=== PATIENT | female | born 1965 | race African-American/Black ===

== ENCOUNTER 2025-01-14 22:14 | Emergency (ER) | payer OTHER, MEDICAID, SELFPAY ==
[2025-01-14 22:17] VITALS: BP 123/85; PULSE 78; RESP 20; TEMP 36.6; O2SAT 100
--- OUTSIDE RECORDS SUMMARY | 2025-01-14 22:17 | XMS_ITS | Patient Health Record ---
Author Organization Jean Carlos Sims MD [facility] Address [address] [place], [place] [address] Care Team Providers Care Sustain Engineer Name Role Phone LeviBetia Primary Care Provider Reason For Referral No Information Medications Medication SIG (Take, Route, Frequency, Duration) Notes Start Date End Date Status Xanax 1 MG 1 tablet as needed Orally Three times a day Not-Taking Latuda 60 MG 1 tablet with food Orally Once a day Not-Taking CeleXA 20 MG 1 tablet Orally Once a day Not-Taking Flexeril 10 MG 1 tablet as needed orally three times a day Active Vitamin E Active Vitamin B6 Active Citalopram Hydrobromide 20 MG 1 tablet Orally Once a day 07/26/2019 Active Tylenol 325 MG 2 tablets as needed Orally every 4 hrs Active Invega 6 MG 1 tablet in the morn ing Orally Once a day Not-Taking Vitamin B12 Active [place] 3 Active Immunizations Vaccine Route Administration Date Status Comme nts Influenza (split) COMMERCIAL INS IM Intramuscular 07/13/2019 Administered Tdap IM Intramuscular 07/13/2019 Administered Social History Tobacco Use: Social History Observation Description Date Details (start date - stop date) Former Smoker NA - NA Tobacco Use/Smoking Question Answer Notes Are you a former smoker Additional Findings: Tobacco Non-User Ex-light c igarette smoker (1-9/day) Alcohol Screen Question Answer Notes Did you have a drink contain ing alcohol in the past year? Yes How often did you have a dri nk containing alcohol in the past year? Monthly or less (1 point) How many drinks did you have on a typical day when you were drinking in the past year? 1 or 2 drinks (0 point) How often did you have 6 or more drinks on one occasion in the past year? Never (0 point) Points 1 Interpretation Negative Tobacco use other than smoking: Question Answer Notes Are you an other tobacco user? Yes V ape Section Notes: Quit in 2011, smoked for 20 years (1/2 pack or less) - 10 pack year history Quit in 2011, smoked for 20 years (1/2 pack or less) - 10 pack year history Problems Problem Type SNOMED Code ICD Code Onset Dates Problem Status W/U Status Risk Notes Problem Bipolar disorder (94385909) Bipolar disorder, unspecified (F31.9) Active confirmed Problem Pain of right knee region (finding) (924419100064524) Pain in right knee (M25.561) Active confirmed Problem Pure hypercholesterolemia (965714752) Pure hypercholester olemia, unspecified (E78.00) Active confirmed Problem Prediabetes (871712596) Prediabe syed (R73.03) Active confirmed Problem Lumbago (837760935) Lumbago (M54.5) Active confirmed Problem Panic disorder (496607088) Panic disorder [episodic paroxysmal anxiety] (F41.0) Active confirmed Problem Muscle spasm (78489240) Muscle s pasm (M62.838) Active confirmed Problem Anemia (018219963) Anemia, unspecified type (D64.9) Active confirmed Plan Of Treatment Pending Test Test Name Order Date MAMMOGRAM, SCREENING 07/13/2019 EKG 04/18/2019 Physical Therapy 07/13/2019 Insurance Providers Payer Name Payer Address Payer Phone Subscriber Number Group Number Insured Name Patient Relationship to Insured Coverage Start Date Coverage End Date [facility] [address] [address] [place] [address] [id number] Marlene Alexandra Self - patient is the insured Medical (General) History Medical History History ICD Code Bipolar disorder Osteoarthritis of the knees Depression Right breast capsular contraction Neuropathy, right arm Right torn meniscus Anemia Prediabetes Hypercholesterolemia Surgical History Surgery Date(Month/Year) Traumatized cervix 1987 Breast Augmentation 12/1992 Right knee torn mesiscus 2008 Breast Augmentation 05/2018 Hospitalization History Reason Date(Month/Year) See surgical history DNC, miscarriage 08/1996 Pneumonia 06/2001
--- OUTSIDE RECORDS SUMMARY | 2025-01-14 22:17 | XMS_ITS | Clinical Summary ---
Author Organization [email or web address] Address [address] [place] [address] Care Team Providers Care Non Destructive Evaluation Manager Name Role Phone Kendall Pretty MD Primary Care Provide r Source Comments [facility],non-owned Affiliates and Associated Physician Practices is amultiple site organization consisting of ambulatory clinics and hospital sitesin [place], [place], [place] and [place]. This disclosure is being madepursuant to the Care Everywhere program and may not contain all information available regarding this patient. Last updated 18.[email or web address] Allergies No known active allergies Medications * Be aware that medications may not be up to date on this document. Alwaysverify current medications with the patient. Medication Sig Dispensed Refills Start Date End Date Status ALPRAZolam (XANAX) 0.5 MG tablet TK 1 T PO BID PRN 08/21/2020 Active citalopram (CELEXA) 20 MG tablet TK 1 T PO D 08/21/2020 Active paliperidone CR 24hr (INVEGA) 6 MG tablet 08/22/2020 Acti ve Probiotic Product (PROBIOTIC ADVANCED PO) A ctive Family History Medical History Relation Name Comments Cancer - Colon Neg Hx Colon polyps Neg Hx Social History Tobacco Use Types Packs/Day Years Used Date Smoking Tobacco: Never Assessed Sex and Gender Information Value Date Recorded Sex Assigned at Not on file Gender Identity Not on file Sexual Orientation Not on file Last Filed Vital Signs Vital Sign Reading Time Taken Comments Blood Pressure - - Pulse - - Temperature - - Respiratory Rate - - Oxygen Saturation - - Inhaled Oxygen Concentration - - Weight 61.2 kg (135 lb) 08/30/2020 2:22 PM COMMUNICATIONS AND SIGNALS SUPERVISOR Height 171.5 cm (5' 7.5 ) 08/30/2020 2:22 PM COMMUNICATIONS AND SIGNALS SUPERVISOR Body Mass Index 20.83 08/30/2020 2:22 PM COMMUNICATIONS AND SIGNALS SUPERVISOR Plan of Treatment Health Maintenance Due Date Last Done Comments COLOGUARD (AGES 45-75) - COL ON CA SCREENING 1965 COLON MONITORING 1965 COLONOSCOPY - COLON CA SCREENING 1965 CT COLONOGRAPHY - COLON CA SCREENING 1965 Colorectal Cancer Screening 1965 FIT - COLON CA SCREENING 1965 FLEX SIG - COLON CA SCREENING 1965 LIPID TESTING 1965 MAMMOGRAM 1965 PAP SMEAR 1965 HIV SCREENING 1980 HEPATITIS C SCREENING 08/06/1983 DTAP/TDAP/TD VACCINES (1 - Tdap) 1984 HEPATITIS B VACCINE (1 of 3 - 19+ 3-dose series) 1984 PNEUMOCOCCAL VACCINE 50+ (1 of 1 - PCV) 2015 ZOSTER VACCINE (1 of 2) 2015 COVID-19 VACCINE ( - 2023-2 5 season) 2024 INFLUENZA VACCINE (#1) 2024 DEPRESSION SCREENING 10/18/2024 HIB VACCINE Aged Out No longer eligi ble based on patient's age to complete this topic HPV VACCINE Aged Out No longer eligi ble based on patient's age to complete this topic MENINGOCOCCAL (Group B) VACC INE SHARED DECISION-MAKING Aged Out No longer eligibl e based on patient's age to complete this topic MENINGOCOCCAL GROUPS A/C/Y/W VACCINE Aged Out No longer eligible b ased on patient's age to complete this topic PNEUMOCOCCAL VACCINE Aged Out No long er eligible based on patient's age to complete this topic Care Teams Non Destructive Evaluation Manager Relationship Specialty Start Date End Date Kendall Pretty MD PCP - General Family Medicine 08/30/20
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
--- NOTE | 2025-01-15 01:13 | PC.NURSE ---
pt continually leaving room and walking around er dept. Security spoke with pt who verbalized I don't want to stay here, im gonna call my daughter and leave. Security informed pt that if she does not stay in the room they would remove her from the list to be seen and pt verbalized to security take me off the list, i don't want to be seen.
--- NOTE | 2025-01-15 01:25 | PC.NURSE ---
pt observed ambulatory to exit and getting into uber car. NAD noted.
--- OUTSIDE RECORDS SUMMARY | 2025-01-15 01:40 | XMS_ITS | Clinical Summary ---
Author Organization [facility] Address [address] [place] [address] Care Team Providers Care General Purchasing Agent Name Role Phone Unavailable Primary Care Provider [...] on file Legal Sex Female 5:41 AM SECURITY INTELLIGENCE ANALYST Gender Identity Not on file Sexual Orientation Not on file Occupation Industry Job Start Date Job End Date Not on file Not on file Not on file Not on file Not on file Not on file Not on file Not on file Last Filed Vital Signs Vital Sign Reading Time Taken Comments Blood Pressure 124/72 12/15/2018 11:25 AM SECURITY INTELLIGENCE ANALYST Pulse 85 09/24/2012 12:00 AM SECURITY INTELLIGENCE ANALYST Temperature 36.6 C (97.9 F) 11/18/2018 12:46 AM SECURITY INTELLIGENCE ANALYST Respiratory Rate 16 11/18/2018 2:00 AM SECURITY INTELLIGENCE ANALYST Oxygen Saturation 99% 11/18/2018 2:00 AM SECURITY INTELLIGENCE ANALYST Inhaled Oxygen Concentration - - Weight 63.5 kg (140 lb) 12/15/2018 11:25 AM SECURITY INTELLIGENCE ANALYST Height 172.7 cm (5' 8 ) 12/15/2018 11:25 AM SECURITY INTELLIGENCE ANALYST Body Mass Index 21.29 12/15/2018 11:25 AM SECURITY INTELLIGENCE ANALYST Plan of Treatment Health Maintenance Due Date [...] 7:47 PM CDT) LAST MENSTRUAL PERIOD 04/05/11 [facility] PAP INTERP Unable to provide interpretation due to unsatisfactory specimen adequacy. [facility] Dining Room Attendant Pap Comment This case could not be evaluated with computer assisted technology. The slide was manually screened according to routine procedures. Consider repeat ore tester cytology in 4-6 months, as clinically indicated. [facility] ADEQUACY: Specimen processed and examined, but unsatisfactory for evaluation due to an insufficient number of squamous cells. [facility] CLINICAL INFORMATION Information not provided [facility] SOURCE [employer] [facility] PREV PAP: INFORMATION NOT PROVIDED [facility] CYTOTECHNOLOGI [place]: [place](ASCP) [facility] REVIEW CYTOTECHNOLOGI [place]: [place], [place](ASCP) [facility] Comment: Lab test performed by: [employer] [address] [address] STARLA SÁNCHEZ DO PREV BX: INFORMATION NOT PROVIDED [facility] REPORT STATUS FINAL [facility] Endocervical 04/06/2011 7:47 PM CDT 04/06/2011 8:15 PM CDT Comment:ENDOCERVICAL us Tay Méndez MD PATHOLOGY/CYTOLOGY ORDERABLE S Final Result [facility] CLIA# [id number] [address] [facility] [place] [address] from Last 3 Months or Most Recently Relevant to Health Maintenance Insurance [facility] [id number] Advance Directives For more information, please contact: [phone] * Full Code (Latest Code Status on File) Date Activated Date Inactivated Comments 09/23/2012 9:35 PM 09/24/2012 10:38 AM
--- OUTSIDE RECORDS SUMMARY | 2025-01-15 01:40 | XMS_ITS | Continuity of Care Document ---
Author Organization [facility] Address [address] [place] [address] [address] [place] [address] Phone Care Team Providers Care Developmental Education Instructor Name Role Phone Krish OD, Rocio Unavailable Unavailable Procedures Procedure Date EYE EXAM, NEW PATIENT REFRACTION Advance Directives Directive Yes / No Effective Date File Name No Information Encounters Encounter Description Practice Location Reason(s) For Visit Diagnoses Date Provider Providers Copied on Encounter [facility], [address], [place], [place], [address], tel:[phone] [facility] No Information [address] [facility] [address] , [address], [place], [address], [place]. tel:[phone] Family History Family Member Type Diagnosis Age At Onset No Information Payers Payer name Insurance type Covered constitution party ID Authoriza tion(s) [facility] CI [id number] Social History Type Description Quantity Date Captured Comments Sex Female Smoking Status No Information Chief Complaint And Reason For Visit No Information Reason For Referral Reason For Referral No Information History Of Present Illness Encounter Date Complaint History Of Prese nt Illness No Information Functional Status Date Functional Assessmen t No Information Instructions Date Instruction Additional Infor mation No Information Assessments Type Assessment Date No Information Patient Care Teams Name Effective Dates (start - stop) Status Members No Information
--- OUTSIDE RECORDS SUMMARY | 2025-01-15 01:40 | XMS_ITS | Clinical Summary ---
Author Organization [facility] Address [address] [place] [address] Care Team Providers Care Radial Drill Press Set Up Operator Name Role Phone Kendall Pretty MD Primary Care Provide r Source Comments [facility], formerly [facility],non-owned Affiliates and Associated Physician Practices is amultiple site organization consisting of ambulatory clinics and hospital sitesin [place], [place], [place] and [place]. This disclosure is being madepursuant to the Care Everywhere program and may not contain all information available regarding this patient. Last updated 18.[facility] Allergies No known active allergies Medications * [...] 61.2 kg (135 lb) 08/30/2020 2:22 PM TANK HOUSE OPERATOR Height 171.5 cm (5' 7.5 ) 08/30/2020 2:22 PM TANK HOUSE OPERATOR Body Mass Index 20.83 08/30/2020 2:22 PM TANK HOUSE OPERATOR Plan of Treatment Health Maintenance Due Date [...] age to complete this topic Care Teams Radial Drill Press Set Up Operator Relationship Specialty Start Date End Date Kendall Pretty MD PCP - General Family Medicine 08/30/20
--- OUTSIDE RECORDS SUMMARY | 2025-01-15 01:40 | XMS_ITS | Clinical Summary ---
Author Organization [facility] Address [address] [place] [address] Care Team Providers Care Nuclear Fuel Processing Technician Name Role Phone None, Provider MD Primary [...] Popliteal synovial cyst 05/19/2010 Bipolar affective disorder ([facility]) 10/2009 Tobacco abuse 09/04/2009 Family History Medical History Relation Comments Hypertension Father Hypertension Mother Relation Status Comments Father Mother Social History Tobacco Use Types Packs/Day Years Used Date Smoking Tobacco: Every Day Cigarettes Smokeless Tobacco: Never Tobacco Cessation:Ready to Q uit: Not Asked Alcohol Use Standard Drinks/Week Comments Yes 0 (1 standard drink = 0.6 oz pur e alcohol) socially [facility] Utilities Answer Date Recorded In the past 12 months has th e [employer], gas, oil, or water [employer] threatened to shut off services in your [...] place to sleep or slept in a long term (including now)? Patient declined 11/09/2023 Comments No Sex and Gender Information Value Date Recorded Sex Assigned at Not on file Legal Sex Female 8:01 PM CDT Gender Identity Not on file Sexual Orientation Not on file Last Filed Vital Signs Vital Sign Reading Time Taken Comments Blood Pressure 161/82 11/10/2023 8:11 AM PROFESSIONAL SHOPPER Pulse 70 11/10/2023 8:11 AM PROFESSIONAL SHOPPER Temperature 37 C (98.6 F) 11/10/2023 8:11 AM PROFESSIONAL SHOPPER Respiratory Rate 16 11/10/2023 8:11 AM PROFESSIONAL SHOPPER Oxygen Saturation 98% 11/10/2023 8:11 AM PROFESSIONAL SHOPPER Inhaled Oxygen Concentration - - Weight 65.1 kg (143 lb 8.3 oz) 11/08/2023 10:31 PM PROFESSIONAL SHOPPER Height 170.2 cm (5' 7 ) 11/08/2023 3:24 PM PROFESSIONAL SHOPPER Body Mass Index 22.48 11/08/2023 3:24 PM PROFESSIONAL SHOPPER Plan of Treatment Health Maintenance Due Date [...] complete this topic Insurance MEDICAID DEPT OF [address] Advance Directives * Full Code (Latest Code Status on File) Date Activated Date Inactivated Comments 11/08/2023 5:42 PM 11/10/2023 12:41 PM * Full Code Date Activated Date Inactivated Comments 02/27/2023 6:12 PM 02/28/2023 2:54 PM Care Teams Nuclear Fuel Processing Technician Relationship Specialty Start Date End Date None, Provider, MD PCP - General UNKNOWN PHYSICIAN SPECIALTY 02/27/23
--- OUTSIDE RECORDS SUMMARY | 2025-01-15 01:40 | XMS_ITS | Patient Health Record ---
Author Organization Jean Carlos Sims MD [facility] Address [address] [place], [place] [id number] Care Team Providers Care Field Service Specialist Name Role Phone LeviBetia Primary Care Provider [...] Once a day Not-Taking Vitamin B12 Active [place] 3 Active Immunizations Vaccine Route Administration Date [...] W/U Status Risk Notes Problem Bipolar disorder (54184579) Bipolar disorder, unspecified (F31.9) Active confirmed Problem Pain of right knee region (finding) (798560690937866) Pain in right knee (M25.561) Active confirmed Problem Pure hypercholesterolemia (613096606) Pure hypercholester olemia, unspecified (E78.00) Active confirmed Problem Prediabetes (698508272) Prediabe syed (R73.03) Active confirmed Problem Lumbago (163503690) Lumbago (M54.5) Active confirmed Problem Panic disorder (093444118) Panic disorder [episodic paroxysmal anxiety] (F41.0) Active confirmed Problem Muscle spasm (20607041) Muscle s pasm (M62.838) Active confirmed Problem Anemia (175990406) Anemia, unspecified type (D64.9) Active confirmed Plan Of Treatment Pending Test Test Name Order Date MAMMOGRAM, SCREENING 07/13/2019 EKG 04/18/2019 Physical Therapy 07/13/2019 Insurance Providers Payer Name Payer Address Payer Phone Subscriber Number Group Number Insured Name Patient Relationship to Insured Coverage Start Date Coverage End Date [facility] [address] [address] [place] [address] [id number] Marlene Alexandra Self - patient is the [...]
== END 2025-01-15 02:30 | disposition left against medical advice (07) ==
DX: R10.9 Unspecified abdominal pain (principal)
CPT/HCPCS: 99199

== ENCOUNTER 2025-05-03 19:07 | Emergency (ER) | payer OTHER, MEDICAID, SELFPAY ==
--- NOTE | ~2025-05-03 | XR_ITS ---
EXAMINATION: XR chest 1V portable Exam Date/Time: 05/03/2025 19:40 CDT HISTORY: AMS Comparison: None. RESULT: Lines, tubes, and devices: Bilateral breast implants. Lungs and pleura: Exam limited by leftward rotation. Cardiomediastinal silhouette: Unremarkable. Other: No acute osseous or upper abdominal finding. IMPRESSION: No acute cardiopulmonary process. Reviewed, dictated and finalized at location K.
--- NOTE | ~2025-05-03 | CT_ITS ---
EXAMINATION: CT brain wo con DATE: 05/03/2025 20:53 INDICATION: AMS, drug OD . TECHNIQUE: Computed tomography (CT) of the head was performed without intravenous contrast. The mA wa s adjusted according to patient size. Iterative reconstruction technique was employed. The dose-lengt h product was 681.00 mGy-cm. COMPARISON: None. FINDINGS: No acute intracranial hemorrhage or extra-axial fluid collection. No hydrocephalus, mass, or herniation. No acute ischemic infarct. Unremarkable dural venous sinus attenuation. No acute osseous abnormality. Retention cysts/polyps in the left maxillary sinus, ethmoid and maxillary mucosal thickening, the rem aining aerated spaces are clear. IMPRESSION: No acute intracranial process. Reviewed, dictated and finalized at location K.
[2025-05-03 19:10] VITALS: BP 144/123; PULSE 81; RESP 16; TEMP 36.4; O2SAT 100
--- NOTE | 2025-05-03 19:11 | ECG_ITS ---
Test Date: 2025-05-03 19:43:25 Measurements Intervals [place] Rate: 74 P: 58 CA: 141 QRS: 60 QRSD: 87 T: 83 QT: 362 QTc: 404 Interpretive Statements SINUS RHYTHM POSSIBLE LEFT ATRIAL ENLARGEMENT [-0.1mV P-WAVE IN V1/V2] LEFT VENTRICULAR HYPERTROPHY WITH SECONDARY REPOLARIZATION ABNORMALITIES ABNORMAL ECG No previous ECG available for comparison Electronically Signed On 05-04-2025 07:41:15 CDT by Juan Baugh M.D.
--- NOTE | 2025-05-03 19:25 | ED_ITS ---
HPI - General Adult General Chief complaint: Overdose Stated complaint: PANIC ATTACK, AMS, REC'D NARCAN Time Seen by Provider: 05/03/25 19:10 History of Present Illness HPI narrative: 59-year-old female with history of polysubstance abuse presenting to the emergency department with mental status changes. She was found unresponsive by EMS and provided Narcan feel that any response. She has occasional tremulousness and a low GCS. No signs of visible trauma. Patient is withdrawing to pain, not opening eyes or verbalizing, GCS 7. Patient has a known history to EMS and police with multiple transport other hospitals for drug and substance related abuse. Patient has not been to this facility previously. She was brought back to room 8 for resuscitation. Reportedly earlier this morning around 8:00 a.m. patient went to another hospital for suspected chest pain and possibly discharge home as she was found near her household earlier this afternoon prior to transport to our facility. Unclear events at outside facility and we do not have records. Related Data Allergies Allergy/AdvReac Type Severity Reaction Status Date / Time No Known Allergies Allergy Unverified 01/14/25 22:15 Review of Systems 2 Review of Systems: Unable to obtain secondary to mental status ROS unobtainable: Yes unobtainable due to mental status Exam 2 Narrative: GENERAL: GCS 7, withdrawing to pain, not opening eyes, not verbalizing to pain HEAD: Normocephalic, atraumatic without any external evidence of trauma EYES: Pupils are 2 mm and reactive bilaterally ENT: Addition poor dentition, mucous membranes are moist NECK: Supple. CHEST: Mildly coarse bibasilar breath sounds but upper airways appear clear to auscultation without any wheezing, tachypnea is noted HEART: [Regular rate and rhythm]. No murmur heard. [Normal peripheral pulses.] ABDOMEN: Soft and nondistended, localizes to palpation of the abdomen, no rigidity EXTREMITIES: No external signs of trauma, no edema in the extremities SKIN: Warm, dry, no rash. NEURO: Withdrawals to pain in all extremities, not verbalizing to pain or opening eyes to pain, GCS 7 PSYCH: Unable to assess Course Vital Signs Vital signs: Vital Signs Temperature 36.4 C 05/03/25 19:10 Pulse Rate 81 05/03/25 19:10 Respiratory Rate 16 05/03/25 19:10 Blood Pressure 144/123 H 05/03/25 19:10 Pulse Oximetry 100 05/03/25 19:10 Oxygen Delivery Room Air 05/03/25 19:10 Temperature 36.4 C 05/03/25 19:10 Pulse Rate 91 05/04/25 04:15 Respiratory Rate 16 05/04/25 04:15 Blood Pressure 143/93 H 05/04/25 04:15 Pulse Oximetry 97 05/04/25 04:15 Oxygen Delivery Room Air 05/03/25 21:16 Medical Decision Making MDM Narrative Medical decision making narrative: 59-year-old female with history of polysubstance abuse presenting to the emergency department with mental status changes. She was found unresponsive by EMS and provided Narcan feel that any response. She has occasional tremulousness and a low GCS. No signs of visible trauma. Patient is withdrawing to pain, not opening eyes or verbalizing, GCS 7. Patient has a known history to EMS and police with multiple transport other hospitals for drug and substance related abuse. Patient has not been to this facility previously. She was brought back to room 8 for resuscitation. Reportedly earlier this morning around 8:00 a.m. patient went to another hospital for suspected chest pain and possibly discharge home as she was found near her household earlier this afternoon prior to transport to our facility. Unclear events at outside facility and we do not have records. Patient was placed on nuclear monitoring technician and pulse oximetry, IV was attempted multiple times and she was given additional Narcan IV for suspected drug overdose although given her level of obtundation as well as EMS report of lots of coughing with white material raising suspicion for aspiration. May require prompt intubation which we are preparing for but several moments after receiving Narcan patient woke up, mentating appropriately, GCS 15 and spitting up. She admitted to snorting lines of fentanyl earlier this evening which corroborates her presentation. She was given 8 mg of Zofran and will be observed. Laboratory studies were ordered as well as a chest x-ray and EKG. Patient was observed for numerous hours here in the emergency department with clinical improvement and sobriety upon reassessments. She is ambulatory without any ataxic or antalgic gait. Doing well, remaining hemodynamically stable without any hypoxia fever. Her laboratory studies show slight leukocytosis of 13.6 likely reactive, normal hemoglobin and normal platelets. Coagulation panel is normal, electrolytes are unremarkable, normal creatinine, unremarkable glucose. Negative troponin. Urinalysis without any infection, UDS is pending. CT of the head negative for any acute intracranial process. Chest x-ray without any acute findings. EKG has a poor baseline waveform making interpretation difficult, no ST segment elevations or ectopy. Patient re-evaluated multiple times and doing well without any complaints. She is now sober at this time and can be safely discharged with return precaution and substance abuse resources and a prescription for naloxone. Medical Records Medical records reviewed: Yes I reviewed the external patient's medical records. Vital Signs Vital Signs: Vital Signs Temperature 36.4 C 05/03/25 19:10 Pulse Rate 81 05/03/25 19:10 Respiratory Rate 16 05/03/25 19:10 Blood Pressure 144/123 H 05/03/25 19:10 Pulse Oximetry 100 05/03/25 19:10 Oxygen Delivery Room Air 05/03/25 19:10 Temperature 36.4 C 05/03/25 19:10 Pulse Rate 91 05/04/25 04:15 Respiratory Rate 16 05/04/25 04:15 Blood Pressure 143/93 H 05/04/25 04:15 Pulse Oximetry 97 05/04/25 04:15 Oxygen Delivery Room Air 05/03/25 21:16 Lab Data Lab results reviewed: Yes I reviewed the patient's lab results. 05/03/25 20:25 05/03/25 20:25 Labs: Lab Results 05/03/25 05/03/25 Range/Units 19:47 20:25 WBC 13.6 H (4.5-10.0) K/mm3 RBC 5.46 H (4.2-5.4) M/mm3 Hgb 14.5 (12.0-15.0) g/dL Hct 46.2 (37.0-47.0) % MCV 84.6 (80-100) fl MCH 26.6 (26-34) pg MCHC 31.4 L (32-36) g/dl RDW 14.6 H (11.5-14.5) % Plt Count 284 (150-375) k/mm3 MPV 10.4 (7.4-10.4) fl Immature Gran % (Auto) 0.4 (0-0.5) % Neut % (Auto) 72.8 (45.5-73.1) % Lymph % (Auto) 20.2 (18.3-44.2) % Howell % (Auto) 5.8 (2.6-8.5) % Eos % (Auto) 0.3 (0-4.4) % Baso % (Auto) 0.5 (0.2-1.2) % Lymph # (Auto) 2.74 (0.9-3.2) K/mm3 Howell # (Auto) 0.8 H (0.1-0.6) K/mm3 Eos # (Auto) 0.0 (0-0.3) K/mm3 Baso # (Auto) 0.1 (0.0-0.1) K/mm3 Abs Immat Gran (auto) 0.06 H (0.00-0.031) K/mm3 Absolute Neuts (auto) 9.9 H (1.3-6.7) K/mm3 Absolute Nucleated RBC 0.000 (0.0-0.012) K/mm3 Nucleated RBC % 0.0 (0.0-0.2) % PT 13.9 (11.1-14.7) Seconds INR 1.1 APTT 22.4 (22.3-36.8) Seconds Sodium 142 (137-145) mmol/L Potassium 3.8 (3.4-5.0) mmol/L Chloride 101 (98-107) mmol/L Carbon Dioxide 26 (22-30) mmol/L Anion Gap 15 H (4-12) mmol/L BUN 7 (7-17) mg/dL Creatinine 0.86 (0.7-1.0) mg/dL Estim Creat Clear Calc Not Reportable Estimated GFR > 60 (59 - ) Glucose 163 H (65-110) mg/dL POC Capillary Glucose 147 H (65-105) mg/dl Calcium 11.2 H (8.4-10.2) mg/dL Total Bilirubin 0.6 (0.2-1.3) mg/dL AST 43 H (14-36) U/L ALT 29 (6-35) U/L Alkaline Phosphatase 96 (38-126) U/L Troponin I < 0.012 (0.000-0.034) ng/mL Total Protein 9.2 H (6.3-8.2) g/dL Albumin 4.9 (3.5-5.1) g/dL Urine Color Yellow (Yellow) Urine Appearance Clear (Clear) Urine pH 7.5 (5.0-9.0) Ur Specific [place] 1.024 (1.001-1.035) Urine Protein 1+ H (Negative) mg/dL Urine Glucose (UA) Negative (Negative) mg/dL Urine Ketones Trace H (Negative) mg/dL Ur Blood (Man) Negative (Negative) Urine Nitrate Negative (Negative) Urine Bilirubin Negative (Negative) Urine Urobilinogen 1.0 (<2.0) mg/dL Add Ur Microanalysis Reviewed Leukocyte Esterase Rfl Negative (Negative) ONEAL/UL Urine RBC 0-2 (0-2) /hpf Urine WBC 0-5 (0-3) /hpf Ur Squamous Epith Cells None seen (Few) /hpf Urine Bacteria None seen /hpf Urine Casts 0-2 Urine Opiates Screen Pending Urine Methadone Screen Pending Ur Barbiturates Screen Pending Ur Phencyclidine Scrn Pending Ur Amphetamine Screen Pending U Benzodiazepines Scrn Pending Urine Cocaine Screen Pending U Cannabinoids Screen Pending Imaging Data Attestation: I personally reviewed and interpreted this imaging study as follows: My impression: Impressions Chest X-Ray 05/03/25 20:03 IMPRESSION: No acute cardiopulmonary process. Head CT 05/03/25 20:56 IMPRESSION: No acute intracranial process. Critical Care Time Critical Care Time Critical Care Time: Yes Total Critical Care Time: 35 Discharge Plan Discharge Clinical Impression: Opiate overdose, Encephalopathy, Mental status change resolved, Drug abuse Patient Disposition: Home Condition: Stable Instructions: Antibiotic Form, Narcotic Safety (ED), Narcotic Use Disorder (ED) Additional Instructions: You were seen in the emergency department today for a suspected opiate overdose. Your symptoms improved with naloxone and we observed you for numerous hours for sobriety. Your laboratory studies are all reassuring without any acute concerning findings on your workup or imaging studies. We have prescribed you naloxone to take at home if you experience any other overdose or overdose type symptoms. Refrain from fentanyl or other substance use. Return with any emergent concerns. Patient Language: Polish Prescriptions: New naloxone [Narcan] 4 mg/actuation spray,non-aerosol 4 mg intranasal Q3M PRN (Reason: opioid overdose) Qty: 2 0RF Rx Instructions: spray 1 dose into ONE nostril; alternate nostrils w each dose until help arrives Follow-up/Referrals: PHYSICIAN,BIG DATA ANALYTICS LEAD [Primary Care Provider] - Time of Disposition: 03:01
--- OUTSIDE RECORDS SUMMARY | 2025-05-03 19:25 | XMS_ITS | Patient Health Record ---
Author Organization Jean Carlos Sims MD [facility] Address [address] [place], [place] [id number] Care Team Providers Care Appliance Repair Technician Name Role Phone LeviBetia Primary Care Provider [...] Once a day Not-Taking Vitamin B12 Active Alpha 3 Active Immunizations Vaccine Route Administration Date [...] W/U Status Risk Notes Problem Bipolar disorder (02680291) Bipolar disorder, unspecified (F31.9) Active confirmed Problem Pain of right knee region (finding) (253779618252495) Pain in right knee (M25.561) Active confirmed Problem Pure hypercholesterolemia (343090725) Pure hypercholester olemia, unspecified (E78.00) Active confirmed Problem Prediabetes (739902354) Prediabe syed (R73.03) Active confirmed Problem Lumbago (915034883) Lumbago (M54.5) Active confirmed Problem Panic disorder (865257689) Panic disorder [episodic paroxysmal anxiety] (F41.0) Active confirmed Problem Muscle spasm (93902346) Muscle s pasm (M62.838) Active confirmed Problem Anemia (363348242) Anemia, unspecified type (D64.9) Active confirmed Plan Of Treatment Pending Test Test Name Order Date MAMMOGRAM, SCREENING 07/13/2019 EKG 04/18/2019 Physical Therapy 07/13/2019 Insurance Providers Payer Name Payer Address Payer Phone Subscriber Number Group Number Insured Name Patient Relationship to Insured Coverage Start Date Coverage End Date [facility] [address] [address] [place] [address] [phone] [id number] Marlene Alexandra Self - patient is the [...]
--- OUTSIDE RECORDS SUMMARY | 2025-05-03 19:26 | XMS_ITS | Clinical Summary ---
Author Organization [facility] Address [address] [place] [address] Care Team Providers Care Extractor Operator Solvent Process Name Role Phone Unavailable Primary Care Provider [...] on file Legal Sex Female 5:41 AM MATERIALS INTERN Gender Identity Not on file Sexual Orientation Not on file Occupation Industry Job Start Date Job End Date Not on file Not on file Not on file Not on file Not on file Not on file Not on file Not on file Last Filed Vital Signs Vital Sign Reading Time Taken Comments Blood Pressure 124/72 12/15/2018 11:25 AM MATERIALS INTERN Pulse 85 09/24/2012 12:00 AM MATERIALS INTERN Temperature 36.6 C (97.9 F) 11/18/2018 12:46 AM MATERIALS INTERN Respiratory Rate 16 11/18/2018 2:00 AM MATERIALS INTERN Oxygen Saturation 99% 11/18/2018 2:00 AM MATERIALS INTERN Inhaled Oxygen Concentration - - Weight 63.5 kg (140 lb) 12/15/2018 11:25 AM MATERIALS INTERN Height 172.7 cm (5' 8) 12/15/2018 11:25 AM MATERIALS INTERN Body Mass Index 21.29 12/15/2018 11:25 AM MATERIALS INTERN Plan of Treatment Health Maintenance Due Date Last Done Comments HEPATITIS B VACCINES (1 of 3 - 19+ 3-dose series) 07/19 BREAST CANCER SCREENING 2005 COLORECTAL SCREENING 2010 Colorectal Cancer Screening 2010 FIT-DNA Q 3 years 2010 FIT/FOBT Q 1 year 2010 Flex Sig/CT Colonography Q 5 years 2010 PAP SMEAR 04/06/2014 04/06/2011 ZOSTER VACCINE (1 of 2) 2015 CERVICAL CANCER SCREENING 04/06/2016 HPV/Cotest (21-29) 04/06/2016 04/06/2011 HPV/Cotest (30-65) 04/06/2016 04/06/2011 DTAP/TDAP/TD VACCINES (2 - Td or Tdap) 04/06/2021 INFLUENZA VACCINE (#1) 2025 Procedures Procedure Name Priority Date/Time Associated Diagnosis Comments CERV/VAG CYTOPATH, THIN PREP IMAGR RFLX HPV Routine 04/06/2011 7:47 PM CDT Screening for cervical cancer from Last 3 Months or Most Recently Relevant to Health Maintenance Results * CERV/VAG CYTOPATH, THIN PREP IMAGR RFLX HPV (04/06/2011 7:47 PM CDT) LAST MENSTRUAL PERIOD 04/05/11 [facility] PAP INTERP Unable to provide interpretation due to unsatisfactory specimen adequacy. [facility] Tractor Sweeper Operator Pap Comment This case could not be evaluated with computer assisted technology. The slide was manually screened according to routine procedures. Consider repeat boring machine set up operator jig cytology in 4-6 months, as clinically indicated. [facility] ADEQUACY: Specimen processed and examined, but unsatisfactory for evaluation due to an insufficient number of squamous cells. [facility] CLINICAL INFORMATION Information not provided [facility] SOURCE [employer] [facility] PREV PAP: INFORMATION NOT PROVIDED [facility] CYTOTECHNOLOGI ST: [place], [place](ASCP) [facility] REVIEW CYTOTECHNOLOGI ST: [place], CT(ASCP) [facility] Comment: Lab test performed by: [facility] [address] [place] [address] STARLA SÁNCHEZ DO PREV BX: INFORMATION NOT PROVIDED [facility] REPORT STATUS FINAL [facility] Endocervical 04/06/2011 7:47 PM CDT 04/06/2011 8:15 PM CDT Comment:ENDOCERVICAL us Tay Méndez MD PATHOLOGY/CYTOLOGY ORDERABLE S Final Result [facility] CLIA# [id number] [address] [place] [address] from Last 3 Months or Most Recently Relevant to Health Maintenance Insurance [facility] [id number] Advance Directives For more information, please contact: [phone] * Full Code (Latest Code Status on File) Date Activated Date Inactivated Comments 09/23/2012 9:35 PM 09/24/2012 10:38 AM
--- OUTSIDE RECORDS SUMMARY | 2025-05-03 19:26 | XMS_ITS | Encounter Summary ---
Author Organization [facility] Address [facility] [place] [address] Care Team Providers Care Marketing And Communications Officer Name Role Phone None, Provider Primary Care Provider Unavaila ble Reason for Referral * Imaging (Emergency) - New Request Specialty Diagnoses / Procedures Referred By Contac t Referred To Contact RADIOLOGY Procedures CTA CHEST PE PROTOCOL Preston Dickson MD [address] [address] Phone: tel: fax: Referral ID Status Reason Start Date Expiration Date V isits Requested Visits Authorized [id number] New Request 05/03/2025 05/03/2026 1 1 Reason for Visit * Reason Comments Chest Pain Encounter Details Date Type Department Care Team (Late st Contact Info) Description 05/03/2025 10:34 AM CDT - 05/03/2025 2:57 PM CDT Emergency [facility] [place] [address] Preston Dickson MD [address] [address] Chest Pain Discharge Disposition: Home or Self Care (Routine Discharge) Social History Tobacco Use Types Packs/Day Years Used Date Smoking Tobacco: Every Day Cigarettes Smokeless Tobacco: Never Alcohol Use Standard Drinks/Week Comments Yes 0 (1 standard drink = 0.6 oz pur e alcohol) socially [facility] Utilities Answer Date Recorded In the past 12 months has e electric, gas, oil, or water company threatened to shut off services in your [...] place to sleep or slept in a alf (including now)? Patient declined 11/09/2023 Comments No Sex and Gender Information Value Date Recorded Sex Assigned at Female 05/03/2025 10:53 AM CDT Legal Sex Female 8:01 PM CDT Gender Identity Not on file Sexual Orientation Not on file documented as of this encounter Last Filed Vital Signs Vital Sign Reading Time Taken Comments Blood Pressure 148/82 05/03/2025 2:00 PM CDT Pulse 115 05/03/2025 2:00 PM CDT Temperature 36.9 C (98.5 F) 05/03/2025 10:39 AM CDT Respiratory Rate 13 05/03/2025 11:30 AM CDT Oxygen Saturation 100% 05/03/2025 2:00 PM CDT Inhaled Oxygen Concentration - - Weight 71.4 kg (157 lb 6.5 oz) 05/03/2025 10:39 AM CDT Height 170.2 cm (5' 7) 05/03/2025 10:39 AM CDT Body Mass Index 24.65 05/03/2025 10:39 AM CDT documented in this encounter Functional Status * Are you deaf or do you have serious difficulty hearing Answer Date of Assessment Author Status No 11/09/2023 12:07 AM Anaid Urbina RN Active * Are you blind or do you have serious difficulty seeing, even when wearing glasses? Answer Date of Assessment Author Status No 11/09/2023 12:07 AM Anaid Urbina RN Active * Do you have serious difficulty walking or climbing stairs? Answer Date of Assessment Author Status No 11/09/2023 12:07 AM Anaid Urbina RN Active * Do you have difficulty dressing or bathing? Answer Date of Assessment Author Status No 11/09/2023 12:07 AM Anaid Urbina RN Active * Because of a physical, mental, or emotional condition, do you have difficulty doing errands alone such as visiting a doctor's office or shopping? Answer Date of Assessment Author Status No 11/09/2023 12:07 AM Anaid Urbina RN Active * Calculated C-SSRS Risk Score (Lifetime/Recent) Answer Date of Assessment Author Status No Risk Indicated 05/03/2025 10:43 AM CDT Partha Tejeda RN Active * [place] Suicide Severity Rating Scale (Screener/Recent Self-Report) Question Answer Date of Assessment Author Status 1. Wish to be (Past 1 Month) No 05/03/2025 10:43 AM CDT Shyanne Tejeda RN Act augustina 2. Non-Specific Active Suicidal Thoughts (Past 1 Month) No 05/03/2025 10:43 AM CDT Shyanne Tejeda RN Act augustina 6. Suicidal Behavior (Lifetime) No 05/03/2025 10:43 AM CDT Shyanne Tejeda RN Act augustina documented as of this encounter Mental Status * Because of a physical, mental, or emotional condition, do you have serious difficulty concentrating, remembering, or making decisions? Answer Entry Date Author Status No 11/09/2023 12:07 AM RESIDENTIAL LAWN SPECIALIST Anaid Quintana RN Active documented in this encounter Discharge Instructions * Discharge Instructions* Preston Dickson MD - 05/03/2025 2:50 PM CDT Please follow-up with your primary care provider. Return to the ER for new or worsening symptoms orany other concerns. * Attachments The following attachments cannot be sent through Care Everywhere. * Chest Pain Discharge Instructions (Maltese) documented in this encounter Medications at Time of Discharge cyclobenzaprine (FLEXERIL) 10 MG tablet Take 1 tablet (10 mg total) by mouth 3 (three) times daily as needed. 10 tablet 05/03/2025 albuterol sulfate HFA 108 (90 Base) MCG/ACT inhaler Inhale 2 puffs into the lungs every 6 (six) hours as needed for Wheezing or Shortness of breath. citalopram (CELEXA) 20 MG tablet Take 1 tablet (20 mg total) by mouth daily. 10/22/2022 methadone (INTENSOL) 10 MG/ML Conc CONCENTRATED solution Take 3 mLs (30 mg total) by mouth daily. naloxone (NARCAN) 4 MG/0.1ML nasal spray 1 spray by Nasal route as needed for Opioid reversal. 1 each 02/28/2023 naproxen (NAPROSYN) 500 MG tablet Take 1 tablet (500 mg total) by mouth 2 (two) times daily as needed (pain). paliperidone ER (INVEGA) 3 MG 24 hr tablet Take 3 tablets (9 mg total) by mouth every morning. 11/27/2022 documented as of this encounter ED Notes * Shyanne Tejeda RN - 05/03/2025 2:50 PM CDT Patient ambulated with ease * Shyanne Tejeda RN - 05/03/2025 1:10 PM CDT Patient assisted to bathroom via wheelchair * Shyanne Tejeda RN - 05/03/2025 12:52 PM CDT Patient provided with debora crackers * Lito Connor RN - 05/03/2025 11:45 AM CDT Pt requesting saltine crackers and water. Ok per assigned ED provider. Pt given crackers and water. * Lito Connor RN - 05/03/2025 11:31 AM CDT This RN temporarily assumed care of pt for assigned RN lunch break. * Preston Dickson MD - 05/03/2025 10:38 AM CDT Emergency Department Note Chief Complaint Chief Complaint Patient presents with Chest Pain History of Present Illness Chest Pain Associated symptoms: shortness of breath and vomiting Associated symptoms: no fever This is a 59-year-old female with past medical history of bipolar, substance abuse, alcohol abuse who presents to the emergency department from home via EMS due to chest pain. She reports chest pain in the center of her chest for the last 2 days. It has been constant. She has had associated shortness of breath. Yesterday she had an episode of vomiting. She is a daily drinker. Medical History ALLERGIES: Review of patient's allergies indicates: No Known Allergies MEDICATIONS: Prior to Admission medications Medication Sig Start Date End Date Taking? Authorizing Provider cyclobenzaprine (FLEXERIL) 10 MG tablet Take 1 tablet (10 mg total) by mouth 3 (three) times daily as needed. 05/03/25 05/13/25 Yes Preston Dickson MD albuterol sulfate HFA 108 (90 Base) MCG/ACT inhaler Inhale 2 puffs into the lungs every 6 (six) hours as needed for Wheezing or Shortness of breath. Default History Genericprovider citalopram (CELEXA) 20 MG tablet Take 1 tablet (20 mg total) by mouth daily. 10/22/22 Default HistoryGenericprovider methadone (INTENSOL) 10 MG/ML Conc CONCENTRATED solution Take 3 mLs (30 mg total) by mouth daily. Default History Genericprovider naloxone (NARCAN) 4 MG/0.1ML nasal spray 1 spray by Nasal route as needed for Opioid reversal. 02/28/23 Lida Mojica MD naproxen (NAPROSYN) 500 MG tablet Take 1 tablet (500 mg total) by mouth 2 (two) times daily as needed (pain). Default History Genericprovider paliperidone ER (INVEGA) 3 MG 24 hr tablet Take 3 tablets (9 mg total) by mouth every morning. 11/27/22 Default History Genericprovider PAST MEDICAL HISTORY: Past Medical History[1] PAST SURGICAL HISTORY: Past Surgical History[2] FAMILY HISTORY: Family History[3] SOCIAL HISTORY: Social History[4] Review of Systems Review of Systems Constitutional: Negative for fever. Respiratory: Positive for shortness of breath. Cardiovascular: Positive for chest pain. Gastrointestinal: Positive for vomiting. Physical Exam Filed Vitals: 05/03/25 1130 05/03/25 1230 05/03/25 1300 05/03/25 1400 BP: (!) 141/92 (!) 146/96 (!) 155/100 (!) 148/82 Pulse: 96 96 (!) 107 (!) 115 Resp: 13 Temp: TempSrc: SpO2: 93% 100% 100% 100% Weight: Height: Physical Exam Vitals and nursing note reviewed. Constitutional: Appearance: She is well-developed. HENT: Head: Normocephalic and atraumatic. Cardiovascular: Rate and Rhythm: Regular rhythm. Tachycardia present. Pulmonary: Effort: Pulmonary effort is normal. Breath sounds: Normal breath sounds. No stridor. Abdominal: General: Bowel sounds are normal. Palpations: Abdomen is soft. Tenderness: There is abdominal tenderness (Epigastric). Musculoskeletal: General: No deformity. Cervical back: Neck supple. Skin: General: Skin is warm and dry. Neurological: General: No focal deficit present. Mental Status: She is alert and oriented to person, place, and time. Diagnostic Studies / Procedures ELECTROCARDIOGRAMS: Results for orders placed or performed during the hospital encounter of 05/03/25 ECG 12 lead Narrative [facility] [address] Test Date: 2025-05-03 Pat Name: FELIZ ROSALES Department: 41 Room: [id number] Gender: Female Clerk Stenographer: [id number] : 1965 Requested By: PRESTON DICKSON Order Number: [id number] Reading MD: Measurements Intervals [place] Rate: 98 P: 72 IA: 144 QRS: 44 QRSD: 85 T: 72 QT: 326 QTc: 417 Interpretive Statements SINUS RHYTHM MODERATE VOLTAGE CRITERIA FOR LVH, CONSIDER NORMAL VARIANT [MEETS CRITERIA IN ONE OF: R(aVL), S(V1), R(V5), R(V5/V6)+S(V1)] NONSPECIFIC T-WAVE ABNORMALITY Compared to ECG 03/08/2023 11:22:58 T-wave abnormality now present Sinus tachycardia no longer present ST (T wave) deviation no longer present Other ischemic changes, not STEMI Preliminary EKG Interpretation by Preston Dickson M.D ECG 12 lead Narrative [facility] [address] Test Date: 2025-05-03 Pat Name: FELIZ ROSALES Department: 41 Room: [id number] Gender: Female Clerk Stenographer: : 1965 Requested By: PRESTON DICKSON Order Number: [id number] Reading MD: Measurements Intervals [place] Rate: 95 P: 73 IA: 151 QRS: 31 QRSD: 85 T: 65 QT: 337 QTc: 425 Interpretive Statements SINUS RHYTHM NONSPECIFIC T-WAVE ABNORMALITY Compared to ECG 05/03/2025 10:46:00 No significant changes No ischemic changes Preliminary EKG Interpretation by Preston Dickson M.D LABORATORY STUDIES: Results for orders placed or performed during the hospital encounter of 05/03/25 CBC W/DIFF AUTOMATED Result Value Ref Range WBC 8.71 4.5 - 11.0 x10'3/uL RBC 5.09 4.20 - 5.40 x10'6/uL HGB 13.8 12.0 - 16.0 G/DL HCT 42.1 38.0 - 48.0 % MCV 82.7 81.0 - 99.0 FL MCH 27.1 27.0 - 31.0 PG MCHC 32.8 32.0 - 36.0 G/DL RDW 14.5 11.5 - 14.5 % PLT 274 130 - 400 x10'3/uL MPV 10.5 9.3 - 12.2 FL DIFFERENTIAL TYPE AUTOMATED DIFFERENTIAL NEUTROPHILS % 70.1 % LYMPHOCYTES % 20.2 % MONOCYTES % 8.8 % EOSINOPHILS 0.3 % BASOPHILS 0.3 % IMMATURE GRANS % 0.3 % ABS. NEUTROPHILS 6.09 1.80 - 7.70 x10'3/uL ABS. LYMPHOCYTES 1.76 1.00 - 4.80 x10'3/uL ABS. MONOCYTES 0.77 0.24 - 0.86 x10'3/uL ABS. EOSINOPHILS 0.03 (L) 0.04 - 0.36 x10'3/uL ABS. BASOPHILS 0.03 0.01 - 0.08 x10'3/uL ABS. IMMATURE GRANULOCYTES 0.03 0.00 - 0.49 x10'3/uL COMPREHENSIVE METABOLIC PANEL Result Value Ref Range GLUCOSE 112 (H) 70 - 99 MG/DL BUN 7 7 - 18 MG/DL CREATININE S/P/B 0.86 0.55 - 1.02 MG/DL SODIUM S/P/B 137 136 - 145 MMOL/L POTASSIUM S/P/B 3.5 3.5 - 5.1 MMOL/L CHLORIDE S/P/B 101 97 - 115 MMOL/L CO2 30.8 21 - 32 MMOL/L CALCIUM S/P/B 10.1 8.5 - 10.1 MG/DL BILIRUBIN TOTAL S/P/B 0.4 0.2 - 1.2 MG/DL TOTAL PROTEIN S/P/B 8.0 6.4 - 8.2 G/DL ALBUMIN S/P/B 3.7 3.4 - 5.0 G/DL AST 17 15 - 37 U/L ALT 22 14 - 55 U/L ALKALINE PHOSPHATASE S/P/B 109 50 - 136 U/L ANION GAP 5.2 2 - 10 MMOL/L BUN CREATININE RATIO 8.1 6 - 26 A/G RATIO 0.9 (L) 1.0 - 2.0 RATIO GFR ESTIMATE 78 (L) >90 ML/MIN/1.73 M2 TROPONIN, QUANT Result Value Ref Range TROPONIN I HIGH SENSITIVITY 4 <54 ng/L TROPONIN, QUANT Result Value Ref Range TROPONIN I HIGH SENSITIVITY 4 <54 ng/L D-DIMER, QUANTITATIVE Result Value Ref Range D-DIMER 4,753 (HH) 0 - 500 ng[FEU]/mL LIPASE Result Value Ref Range LIPASE 14 13 - 75 UNITS/L MAGNESIUM Result Value Ref Range MAGNESIUM 2.1 1.8 - 2.4 MG/DL IMAGING STUDIES CTA CHEST PE PROTOCOL Final Result by User, [id number] (05/03 1303) [address] [address] IMAGING STUDIES: CTA CHEST PE PROTOCOL DATE: 05/03/2025 12:04 PM HISTORY: chest pain 59-year-old female. Mid chest pain and shortness of breath for 2 days. Patient reports chest pain has been constant and associated with shortness of breath. COMPARISON: Chest portable 05/03/2025 at 1103 hours. Chest portable 02/27/2023. DISCUSSION: CTA chest following intravenous administration 80 ml Isovue 370 contrast at 1210 hours. Axial, coronal, MIP coronal, and sagittal reconstructions. 3-dimensional vascular reconstructions performed at an independent workstation with physician supervision. Automated exposure control with radiation dose reduction techniques used. Cardiovascular: Heart size within normal limits. No pericardial effusion. No aortic aneurysm or dissection. No apparent pulmonary embolus. Lymphatic: Approximately 12 mm diameter left axillary lymph node (axial image 29). No mediastinal or perihilar adenopathy. Breasts: Bilateral breast implants. Pulmonary and Pleura: No focal infiltrate or consolidation. No pleural effusion or pneumothorax. 6 x 3 mm parenchymal density in the right middle lobe on axial image 83 is most likely post inflammatory scarring. 2 mm nodule in the right upper lobe on axial image 54. Pleural and parenchymal scarring in the chest apices. Musculoskeletal: Degenerative changes of the spine and visualized right shoulder. Upper Abdomen: No acute abnormality in the upper abdomen. IMPRESSION: 1. No acute pulmonary infiltrate or consolidation. Probable postinflammatory scarring in the right middle lobe for which no follow-up is required per consensus guidelines. 2 mm right upper lobe pulmonary nodule for which no follow-up is required per consensus guidelines. 2. No apparent pulmonary embolus. No aortic aneurysm or dissection. 3. 12 mm diameter left axillary lymph node but no other appreciable adenopathy. Ordered By: PRESTON DICKSON Interpreted By: Herman Najera, 05/03/2025 12:46 PM XR CHEST PORTABLE Final Result by User, [id number] (05/03 1142) [address] [address] IMAGING STUDIES: XR CHEST PORTABLE DATE: 05/03/2025 10:46 AM HISTORY: Chest pain 59-year-old female. Mid chest pain and shortness of breath for 2 days. COMPARISON: Chest portable 02/27/2023. DISCUSSION: Portable AP upright view of the chest. Heart size is within normal limits. No acute pulmonary vascular congestion. Large breasts with implants with resulting increased density over the mid and lower chest bilaterally. No appreciable focal pulmonary infiltrate, pulmonary consolidation, pleural effusion, or pneumothorax. Degenerative changes spine and shoulders. IMPRESSION: No appreciable focal pulmonary infiltrate or consolidation. No acute pulmonary vascular congestion. Ordered By: PRESTON DICKSON Interpreted By: Herman Najera, 05/03/2025 11:37 AM ED Course / Medical Decision Making Medical Decision Making Problems Addressed: Atypical chest pain: acute illness or injury Amount and/or Complexity of Data Reviewed External Data Reviewed: notes. Details: 11/10/2023 discharge summary reviewed. Patient was admitted for altered mental status. Labs: ordered. Decision-making details documented in ED Course. Radiology: ordered. Decision-making details documented in ED Course. ECG/medicine tests: ordered and independent interpretation performed. Decision- making details documented in ED Course. Risk Prescription drug management. ED Course as of 05/03/25 1452 Alejandra May 03, 2025 1046 EKG shows sinus rhythm. Rate 98. Nonspecific T wave abnormality. [BH] 1142 Chest x-ray shows no acute process [BH] 1143 No anemia. No leukocytosis. Chemistry unremarkable. Lipase normal. Magnesium normal. Troponin normal. [BH] 1146 D-dimer elevated at 4753 so will obtain CTA chest [BH] 1306 CTA chest shows no PE. No pulmonary infiltrate or consolidation. [BH] 1448 Repeat troponin normal. [BH] 1449 On reevaluation, patient is resting comfortably. She feels well. She reports that she recentlylost her primary care doctor and she is running out of her Flexeril that she takes for muscle spasms. She asked for a refill. I I will give her a short prescription and a referral to a new PCP. Discussed all results with patient. Discussed home care, return precautions and need for follow up.Patient verbalized understanding and agreement with plan. [] ED Course User Index [] Preston Dickson MD Rhythm strip ordered and interpreted: NSR, Rate 98, No ectopy Medications multi vitamin/minerals (THERA-M ENHANCED) tablet 1 tablet (1 tablet Oral Given 05/03/25 1058) folic acid (FOLVITE) tablet 1 mg (1 mg Oral Given 05/03/25 1058) vitamin B-1 (THIAMINE) tablet 100 mg (100 mg Oral Given 05/03/25 1058) famotidine (PF) (PEPCID) injection 20 mg (20 mg Intravenous Given 05/03/25 1059) lactated ringers bolus infusion 1,000 mL (0 mLs Intravenous Infusion Stop Time 05/03/25 1225) iopamidol (ISOVUE-370) 76 % injection 80 mL (80 mLs Intravenous Given 05/03/25 1209) lactated ringers bolus infusion 1,000 mL (0 mLs Intravenous Infusion Stop Time 05/03/25 1448) Clinical Impression Atypical chest pain (Primary) Current Discharge Medication List Disposition: Discharge Follow-Up: Colton Rod MD [address] [facility] [address] [place] [id number] In 3 days Preston Dickson MD 05/03/2025 [1] Past Medical History: Diagnosis Date Bipolar disorder, unspecified (CMS/HCC HHS/HCC) Heroin use 02/26/2023 [2] Past Surgical History: Procedure Laterality Date ENLARGE BREAST GRASS CUTTER SURGERY cervix KNEE SURGERY [3] Family History Problem Relation Name Age of Onset Hypertension Mother Hypertension Father [4] Social History Tobacco Use Smoking status: Every Day Types: Cigarettes Smokeless tobacco: Never Substance Use Topics Alcohol use: Yes Comment: socially Drug use: Yes Frequency: 3.0 times per week Types: Heroin, Marijuana Preston Dickson MD 05/03/25 1458 * Shyanne Tejeda RN - 05/03/2025 10:37 AM CDT Patient arrives via EMS from home with c/o mid chest pain and SOB x2 days. Patient consumes alcoholdaily the last drink about 2200. * Itz Canas RN - 05/03/2025 10:34 AM CDT Bed: 20 Expected date: Expected time: Means of arrival: Comments: EMS documented in this encounter Plan of Treatment Not on file documented as of this encounter Procedures Procedure Name Priority Date/Time Associated Diagnosis Comments TROPONIN, QUANT STAT 05/03/2025 12:37 PM CDT ECG 12-LEAD STAT 05/03/2025 12:33 PM CDT CTA CHEST PE PROTOCOL STAT 05/03/2025 12:09 PM CDT XR CHEST PORTABLE STAT 05/03/2025 11: 28 AM CDT COMPREHENSIVE METABOLIC PANEL STAT 05/03/2025 10:49 AM CDT D-DIMER, QUANTITATIVE STAT 05/03/2025 10:49 AM CDT CBC W/DIFF AUTOMATED STAT 05/03/2025 10:49 AM CDT TROPONIN, QUANT STAT 05/03/2025 10:49 AM CDT MAGNESIUM STAT 05/03/2025 10:49 AM CDT LIPASE STAT 05/03/2025 10:49 AM CDT ECG 12-LEAD Routine 05/03/2025 10:46 AM CDT documented in this encounter Results * TROPONIN, QUANT (05/03/2025 12:37 PM CDT) Pathologist [facility] TROPONIN I HIGH SENSITIVITY 4 <54 ng/L 05/03/2025 1:07 PM CDT [facility] Comment: HIGH DOSES OF BIOTIN, TROPONIN-SPECIFIC AUTOANTIBODIES, AND ANTIBODY THERAPY CONTAINING HAMA MAY INTERFERE WITH THIS TEST RESULT. CORRELATION TO CLINICAL HISTORY AND PRESENTATION RECOMMENDED. 05/03/2025 12:3 7 PM CDT Preston Dickson MD LABORATORY Final Result [facility] [address] [place] [address], [place] [phone] * ECG 12 lead (05/03/2025 12:33 PM CDT) 05/03/2025 12:3 3 PM CDT Narrative [facility] - 05/03/2025 12:39 PM CDT [address] [place] Test Date: 2025-05-03 Pat Name: FELIZ ROSALES Department: 41 Room: [id number] Gender: Female Clerk Stenographer: : 1965 Requested By: PRESTON DICKSON Order Number: [id number] Reading MD: Measurements Intervals [place] Rate: 95 P: 73 IA: 151 QRS: 31 QRSD: 85 T: 65 QT: 337 QTc: 425 Interpretive Statements SINUS RHYTHM NONSPECIFIC T-WAVE ABNORMALITY Compared to ECG 05/03/2025 10:46:00 No significant changes No ischemic changes Preliminary EKG Interpretation by Preston Dickson M.D Procedure Note Md, Generic Conversion, MD - 05/03/[address] [facility] Test Date: 2025-05-03 Pat Name: FELIZ ROSALES Department: 41 Room: [id number] Gender: Female Clerk Stenographer: : 1965 Requested By: PRESTON DICKSON Order Number: [id number] Reading MD: Measurements Intervals [place] Rate: 95 P: 73 IA: 151 QRS: 31 QRSD: 85 T: 65 QT: 337 QTc: 425 Interpretive Statements SINUS RHYTHM NONSPECIFIC T-WAVE ABNORMALITY Compared to ECG 05/03/2025 10:46:00 No significant changes No ischemic changes Preliminary EKG Interpretation by Preston Dickson M.D us Preston Dickson MD ECG ORDERABLES Final Result [facility] * CTA CHEST PE PROTOCOL (05/03/2025 12:09 PM CDT) Anatomical Region Laterality Modality Chest Computed Tomogra phy 05/03/2025 12:4 6 PM CDT Impressions 05/03/2025 1:02 PM CDT IMPRESSION: 1. No acute pulmonary infiltrate or consolidation. Probable postinflammatory scarring in the right middle lobe for which no follow-up is required per consensus guidelines. 2 mm right upper lobe pulmonary nodule for which no follow-up is required per consensus guidelines. 2. No apparent pulmonary embolus. No aortic aneurysm or dissection. 3. 12 mm diameter left axillary lymph node but no other appreciable adenopathy. Ordered By: PRESTON DICKSON Interpreted By: Herman Najera, 05/03/2025 12:46 PM Narrative 05/03/2025 1:02 PM CDT [address] [address] IMAGING STUDIES: CTA CHEST PE PROTOCOL DATE: 05/03/2025 12:04 PM HISTORY: chest pain 59-year-old female. Mid chest pain and shortness of breath for 2 days. Patient reports chest pain has been constant and associated with shortness of breath. COMPARISON: Chest portable 05/03/2025 at 1103 hours. Chest portable 02/27/2023. DISCUSSION: CTA chest following intravenous administration 80 ml Isovue 370 contrast at 1210 hours. Axial, coronal, MIP coronal, and sagittal reconstructions. 3-dimensional vascular reconstructions performed at an independent workstation with physician supervision. Automated exposure control with radiation dose reduction techniques used. Cardiovascular: Heart size within normal limits. No pericardial effusion. No aortic aneurysm or dissection. No apparent pulmonary embolus. Lymphatic: Approximately 12 mm diameter left axillary lymph node (axial image 29). No mediastinal or perihilar adenopathy. Breasts: Bilateral breast implants. Pulmonary and Pleura: No focal infiltrate or consolidation. No pleural effusion or pneumothorax. 6 x 3 mm parenchymal density in the right middle lobe on axial image 83 is most likely post inflammatory scarring. 2 mm nodule in the right upper lobe on axial image 54. Pleural and parenchymal scarring in the chest apices. Musculoskeletal: Degenerative changes of the spine and visualized right shoulder. Upper Abdomen: No acute abnormality in the upper abdomen. Procedure Note Herman Najera MD - 05/03/[address] [address] IMAGING STUDIES: CTA CHEST PE PROTOCOLDATE: 05/03/2025 12:04 PM HISTORY: chest pain 59-year-old female. Mid chest pain and shortnessof breath for 2 days. Patient reports chest pain has been constant andassociated with shortness of breath. COMPARISON: Chest portable 05/03/2025 at 1103 hours. Chest portable02/27/2023. DISCUSSION: CTA chest following intravenous administration 80 ml Isovue 370 contrastat 1210 hours. Axial, coronal, MIP coronal, and sagittal reconstructions.3-dimensional vascular reconstructions performed at an independentworkstation with physician supervision. Automated exposure control withradiation dose reduction techniques used. Cardiovascular: Heart size within normal limits. No pericardial effusion.No aortic aneurysm or dissection. No apparent pulmonary embolus. Lymphatic: Approximately 12 mm diameter left axillary lymph node (axialimage 29). No mediastinal or perihilar adenopathy. Breasts: Bilateral breast implants. Pulmonary and Pleura: No focal infiltrate or consolidation. No pleuraleffusion or pneumothorax. 6 x 3 mm parenchymal density in the right middlelobe on axial image 83 is most likely post inflammatory scarring. 2 mmnodule in the right upper lobe on axial image 54. Pleural and parenchymalscarring in the chest apices. Musculoskeletal: Degenerative changes of the spine and visualized rightshoulder. Upper Abdomen: No acute abnormality in the upper abdomen. IMPRESSION: 1. No acute pulmonary infiltrate or consolidation. Probablepostinflammatory scarring in the right middle lobe for which no follow-upis required per consensus guidelines. 2 mm right upper lobe pulmonarynodule for which no follow-up is required per consensus guidelines. 2. No apparent pulmonary embolus. No aortic aneurysm or dissection. 3. 12 mm diameter left axillary lymph node but no other appreciableadenopathy. Ordered By: PRESTON DICKSON Interpreted By: Herman Najera, 05/03/2025 12:46 PM us Preston Dickson MD CT Final Result * XR CHEST PORTABLE (05/03/2025 11:28 AM CDT) Anatomical Region Laterality Modality Chest Fluoroscopy 05/03/2025 11:3 7 AM CDT Impressions 05/03/2025 11:41 AM CDT IMPRESSION: No appreciable focal pulmonary infiltrate or consolidation. No acute pulmonary vascular congestion. Ordered By: PRESTON DICKSON Interpreted By: Herman Najera, 05/03/2025 11:37 AM Narrative 05/03/2025 11:41 AM CDT [address] [address] IMAGING STUDIES: XR CHEST PORTABLE DATE: 05/03/2025 10:46 AM HISTORY: Chest pain 59-year-old female. Mid chest pain and shortness of breath for 2 days. COMPARISON: Chest portable 02/27/2023. DISCUSSION: Portable AP upright view of the chest. Heart size is within normal limits. No acute pulmonary vascular congestion. Large breasts with implants with resulting increased density over the mid and lower chest bilaterally. No appreciable focal pulmonary infiltrate, pulmonary consolidation, pleural effusion, or pneumothorax. Degenerative changes spine and shoulders. Procedure Note Herman Najera MD - 05/03/[address] [address] IMAGING STUDIES: XR CHEST PORTABLEDATE: 05/03/2025 10:46 AM HISTORY: Chest pain 59-year-old female. Mid chest pain and shortnessof breath for 2 days. COMPARISON: Chest portable 02/27/2023. DISCUSSION: Portable AP upright view of the chest. Heart size is within normal limits. No acute pulmonary vascularcongestion. Large breasts with implants with resulting increased density over the midand lower chest bilaterally. No appreciable focal pulmonary infiltrate,pulmonary consolidation, pleural effusion, or pneumothorax. Degenerative changes spine and shoulders. IMPRESSION: No appreciable focal pulmonary infiltrate or consolidation. No acutepulmonary vascular congestion. Ordered By: PRESTON DICKSON Interpreted By: Herman Najera, 05/03/2025 11:37 AM us Preston Dickson MD GENERAL IMAGING Final Result * MAGNESIUM (05/03/2025 10:49 AM CDT) Pathologist [facility] MAGNESIUM 2.1 1.8 - 2.4 MG/DL 05/03/2025 11:24 AM CDT [facility] 05/03/2025 10:4 9 AM CDT Preston Dickson MD LABORATORY Final Result [facility] [address] [place] [address], * LIPASE (05/03/2025 10:49 AM CDT) Pathologist [facility] LIPASE 14 13 - 75 UNITS/L 05/03/2025 11:24 AM CDT [facility] 05/03/2025 10:4 9 AM CDT Preston Dickson MD LABORATORY Final Result Performing Organization Address City/[facility]/ZIP Co de Phone Number [facility] [address] [place] [address], [place] [phone] * (ABNORMAL) D-DIMER, QUANTITATIVE (05/03/2025 10:49 AM CDT) Pathologist [facility] D-DIMER 4,753(HH) 0 - 500 ng{FEU}/mL 05/03/2025 11:45 AM CDT [facility] Comment: D-Dimer values less than or equal to 500 ng/mL FEU have a negative predictive value of >95% for exclusion of deep vein thrombosis and pulmonary embolism. In patients over 50 (who tend to have higher normal baseline D-Dimer values), recent studies suggest age-adjusted D-Dimer cutoff values (calculated as: age [years] x 10 ng/mL) result in equivalent outcomes and no additional false negative findings. Successful Call: DDIMR called 05/03/2025 11:46 AM to EMERGENCY ROOM ([id number]/[facility]) by [id number]. Read Back: Yes 05/03/2025 10:4 9 AM CDT Preston Dickson MD LABORATORY Final Result Performing Organization Address City/[facility]/ZIP Co de Phone Number [facility] [address] [place] [address], [place] [phone] * TROPONIN, QUANT (05/03/2025 10:49 AM CDT) Pathologist [facility] TROPONIN I HIGH SENSITIVITY 4 <54 ng/L 05/03/2025 11:24 AM CDT [facility] Comment: HIGH DOSES OF BIOTIN, TROPONIN-SPECIFIC AUTOANTIBODIES, AND ANTIBODY THERAPY CONTAINING HAMA MAY INTERFERE WITH THIS TEST RESULT. CORRELATION TO CLINICAL HISTORY AND PRESENTATION RECOMMENDED. 05/03/2025 10:4 9 AM CDT Preston Dickson MD LABORATORY Final Result Performing Organization Address [facility] Co de Phone Number [facility] [address] [place] [address], [place] [phone] * (ABNORMAL) COMPREHENSIVE METABOLIC PANEL (05/03/2025 10:49 AM CDT) Pathologist [facility] GLUCOSE 112(H) 70 - 99 MG/DL 05/03/2025 11:24 AM CDT [facility] BUN 7 7 - 18 MG/DL 05/03/2025 11:24 AM CDT [facility] CREATININE S/P/B 0.86 0.55 - 1.02 MG/DL 05/03/2025 11:24 AM CDT [facility] SODIUM S/P/B 137 136 - 145 MMOL/L 05/03/2025 11:24 AM CDT [facility] POTASSIUM S/P/B 3.5 3.5 - 5.1 MMOL/L 05/03/2025 11:24 AM CDT [facility] CHLORIDE S/P/B 101 97 - 115 MMOL/L 05/03/2025 11:24 AM CDT [facility] CO2 30.8 21 - 32 MMOL/L 05/03/2025 11:24 AM CDT [facility] CALCIUM S/P/B 10.1 8.5 - 10.1 MG/DL 05/03/2025 11:24 AM CDT [facility] BILIRUBIN TOTAL S/P/B 0.4 0.2 - 1.2 MG/DL 05/03/2025 11:24 AM CDT [facility] Comment: THIS ASSAY IS NOT RECOMMENDED FOR PATIENTS UNDERGOING TREATMENT WITH ELTROMBOPAG DUE TO THE POTENTIAL FOR FALSELY ELEVATED RESULTS. TOTAL PROTEIN S/P/B 8.0 6.4 - 8.2 G/DL 05/03/2025 11:24 AM CDT [facility] ALBUMIN S/P/B 3.7 3.4 - 5.0 G/DL 05/03/2025 11:24 AM CDT [facility] AST 17 15 - 37 U/L 05/03/2025 11:24 AM CDT [facility] ALT 22 14 - 55 U/L 05/03/2025 11:24 AM CDT [facility] ALKALINE PHOSPHATASE S/P/B 109 50 - 136 U/L 05/03/2025 11:24 AM CDT [facility] ANION GAP 5.2 2 - 10 MMOL/L 05/03/2025 11:24 AM CDT [facility] BUN CREATININE RATIO 8.1 6 - 26 05/03/2025 11:24 AM CDT [facility] A/G RATIO 0.9(L) 1.0 - 2.0 RATIO 05/03/2025 11:24 AM CDT [facility] GFR ESTIMATE 78(L) >90 ML/MIN/1.7 3 M2 05/03/2025 11:24 AM CDT [facility] Comment: NOTE: eGFR is not calculated for patients <18 years of age or gender unknown. This is an estimated GFR calculation using the new CKD EPI creatinine equation without race and so does not require a correction factor for race. This estimated GFR should not be used for calculating drug doses. 05/03/2025 10:4 9 AM CDT us Preston Dickson MD LABORATORY Final Result [facility] [address] [place] [address], [place] [phone] * (ABNORMAL) CBC W/DIFF AUTOMATED (05/03/2025 10:49 AM CDT) WBC 8.71 4.5 - 11.0 x10'3/uL 05/03/2025 11:23 AM CDT [facility] RBC 5.09 4.20 - 5.40 x10'6/uL 05/03/2025 11:23 AM CDT [facility] HGB 13.8 12.0 - 16.0 G/DL 05/03/2025 11:23 AM CDT [facility] HCT 42.1 38.0 - 48.0 % 05/03/2025 11:23 AM CDT [facility] MCV 82.7 81.0 - 99.0 FL 05/03/2025 11:23 AM CDT [facility] MCH 27.1 27.0 - 31.0 PG 05/03/2025 11:23 AM CDT [facility] MCHC 32.8 32.0 - 36.0 G/DL 05/03/2025 11:23 AM CDT [facility] RDW 14.5 11.5 - 14.5 % 05/03/2025 11:23 AM CDT [facility] PLT 274 130 - 400 x10'3/uL 05/03/2025 11:23 AM T [facility] MPV 10.5 9.3 - 12.2 FL 05/03/2025 11:23 AM T [facility] DIFFERENTIAL TYPE AUTOMATED DIFFERENTIAL 05/03/2025 11:23 AM T [facility] NEUTROPHILS % 70.1 % 05/03/2025 11:23 AM T [facility] LYMPHOCYTES % 20.2 % 05/03/2025 11:23 AM T [facility] MONOCYTES % 8.8 % 05/03/2025 11:23 AM T [facility] EOSINOPHILS 0.3 % 05/03/2025 11:23 AM T [facility] BASOPHILS 0.3 % 05/03/2025 11:23 AM T [facility] IMMATURE GRANS % 0.3 % 05/03/20 11:23 AM T [facility] ABS. NEUTROPHILS 6.09 1.80 - 7.70 x10'3/uL 05/03/2025 11:23 AM CDT [facility] ABS. LYMPHOCYTES 1.76 1.00 - 4.80 x10'3/uL 05/03/2025 11:23 AM T [facility] ABS. MONOCYTES 0.77 0.24 - 0.86 x10'3/uL 05/03/2025 11:23 AM CDT [facility] ABS. EOSINOPHILS 0.03(L) 0.04 - 0.36 x10'3/uL 05/03/2025 11:23 AM CDT [facility] ABS. BASOPHILS 0.03 0.01 - 0.08 x10'3/uL 05/03/2025 11:23 AM CDT [facility] ABS. IMMATURE GRANULOCYTES 0.03 0.00 - 0.49 x10'3/uL 05/03/2025 11:23 AM CDT [facility] 05/03/2025 10:4 9 AM CDT Preston Dickson MD LABORATORY Final Result Performing Organization Address City/State/[facility] Co de Phone Number [facility] [address] [place] [address], * ECG 12 lead (05/03/2025 10:46 AM CDT) 05/03/2025 10:4 6 AM CDT Narrative [facility] - 05/03/2025 10:44 AM CDT [address] Test Date: 2025-05-03 Pat Name: FELIZ MORENOREINALDO Department: 41 Room: [place] [address] Gender: Female Clerk Stenographer: [id number] : 1965 Requested By: PRESTON DICKSON Order Number: [id number] Reading MD: Measurements Intervals [place] Rate: 98 P: 72 IA: 144 QRS: 44 QRSD: 85 T: 72 QT: 326 QTc: 417 Interpretive Statements SINUS RHYTHM MODERATE VOLTAGE CRITERIA FOR LVH, CONSIDER NORMAL VARIANT [MEETS CRITERIA IN ONE OF: R(aVL), S(V1), R(V5), R(V5/V6)+S(V1)] NONSPECIFIC T-WAVE ABNORMALITY Compared to ECG 03/08/2023 11:22:58 T-wave abnormality now present Sinus tachycardia no longer present ST (T wave) deviation no longer present Other ischemic changes, not STEMI Preliminary EKG Interpretation by Preston Dickson M.D Procedure Note Md, Generic Conversion, - 05/03/2025 [facility] [address] Test Date: 2025-05-03 Pat Name: FELIZ ROSALES Department: 41 Room: [id number] Gender: Female Clerk Stenographer: [id number] : 1965 Requested By: PRESTON DICKSON Order Number: [id number] Reading MD: Measurements Intervals [place] Rate: 98 P: 72 IA: 144 QRS: 44 QRSD: 85 T: 72 QT: 326 QTc: 417 Interpretive Statements SINUS RHYTHM MODERATE VOLTAGE CRITERIA FOR LVH, CONSIDER NORMAL VARIANT [MEETSCRITERIA IN ONE OF: R(aVL), S(V1), R(V5), R(V5/V6)+S(V1)] NONSPECIFIC T-WAVE ABNORMALITY Compared to ECG 03/08/2023 11:22:58 T-wave abnormality now present Sinus tachycardia no longer present ST (T wave) deviation no longer present Other ischemic changes, not STEMI Preliminary EKG Interpretation by Preston Dickson M.D us Preston Dickson MD ECG ORDERABLES Final Result [facility] documented in this encounter Visit Diagnoses Diagnosis Atypical chest pain- Primary Other chest pain documented in this encounter Administered Medications Inactive Administered Medications - up to 3 most recent administrations Medication Order MAR Action Action Date Dose Rate Site famotidine (PF) (PEPCID) injection 20 mg 20 mg, Intravenous, Once, 1 dose, On Alejandra 05/03/25 at 1045, IV Push over 2 minutes Given 05/03/2025 10:59 AM CDT 20 mg folic acid (FOLVITE) tablet 1 mg 1 mg, Oral, Daily, First dose on Alejandra 05/03/25 at 1100, Until Discontinued, Give with meal. Discontinue when CIWA complete. Given 05/03/2025 10:58 AM CDT 1 mg iopamidol (ISOVUE-370) 76 % injection 80 mL 80 mL, Intravenous, IMG once as needed, Contrast, 1 dose, Starting on Alejandra 05/03/25 at 1209, Until Alejandra 05/03/25 at 1209 Given 05/03/2025 12:09 PM CDT 80 mLs lactated ringers bolus infusion 1,000 mL 1,000 mL, Intravenous, Administer over 15 Minutes, Once, 1 dose, On Alejandra 05/03/25 at 1045 New Bag 05/03/2025 11:00 AM CDT 1,000 mLs 4000 mL/hr lactated ringers bolus infusion 1,000 mL 1,000 mL, Intravenous, Administer over 15 Minutes, Once, 1 dose, On Alejandra 05/03/25 at 1330 New Bag 05/03/2025 1:21 PM CDT 1,000 mLs 4000 mL/hr multi vitamin/minerals (THERA-M ENHANCED) tablet 1 tablet 1 tablet, Oral, Daily, First dose on Alejandra 05/03/25 at 1100, Until Discontinued, Give with meal. Discontinue when CIWA complete. Given 05/03/2025 10:58 AM CDT 1 tablet vitamin B-1 (THIAMINE) tablet 100 mg 100 mg, Oral, Daily, First dose on Alejandra 05/03/25 at 1100, Until Discontinued, Give with meals Given 05/03/2025 10:58 AM CDT 100 mg documented in this encounter Active and Recently Administered Medications Times are shown in CDT. Scheduled Medication Order 05/01/2025 05/02/2025 05/03/2025 famotidine (PF) (PEPCID) injection 20 mg (COMPLETED) 20 mg, Intravenous, Once, 1 dose, On Alejandra 05/03/25 at 1045, IV Push over 2 minutes 1059 (Given - Provid er: Shyanne Tejeda RN) folic acid (FOLVITE) tablet 1 mg 1 mg, Oral, Daily, First dose on Alejandra 05/03/25 at 1100, Until Discontinued, Give with meal. Discontinue when CIWA complete. 1058 (Given - Provid er: Shyanne Tejeda RN) lactated ringers bolus infusion 1,000 mL (COMPLETED) 1,000 mL, Intravenous, Administer over 15 Minutes, Once, 1 dose, On Alejandra 05/03/25 at 1045 1100 (New Bag - Prov ider: Shyanne Tejeda RN)1225 (Infusion Stop Time - Provider: Shyanne Tejeda RN) lactated ringers bolus infusion 1,000 mL (COMPLETED) 1,000 mL, Intravenous, Administer over 15 Minutes, Once, 1 dose, On Alejandra 05/03/25 at 1330 1321 (New Bag - Prov ider: Shyanne Tejeda RN)1448 (Infusion Stop Time - Provider: Shyanne Tejeda RN) multi vitamin/minerals (THERA-M ENHANCED) tablet 1 tablet 1 tablet, Oral, Daily, First dose on Alejandra 05/03/25 at 1100, Until Discontinued, Give with meal. Discontinue when CIWA complete. 1058 (Given - Provid er: Shyanne Tejeda RN) vitamin B-1 (THIAMINE) tablet 100 mg 100 mg, Oral, Daily, First dose on Alejandra 05/03/25 at 1100, Until Discontinued, Give with meals 1058 (Given - Provid er: Shyanne Tejeda RN) PRN Medication Order 05/01/2025 05/02/2025 05/03/2025 iopamidol (ISOVUE-370) 76 % injection 80 mL (COMPLETED) 80 mL, Intravenous, IMG once as needed, Contrast, 1 dose, Starting on Alejandra 05/03/25 at 1209, Until Alejandra 05/03/25 at 1209 1209 (Given - Provid er: Radha Eden, RTR) documented in this encounter Care Teams Marketing And Communications Officer Relationship Specialty Start Date End Date None, Provider, PCP - General UNKNOWN PHYSICIAN SPECIALTY 02/27/23 documented as of this encounter
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
--- OUTSIDE RECORDS SUMMARY | 2025-05-03 19:26 | XMS_ITS | Encounter Summary ---
Author Organization [facility] Address [facility] [place] [address] Care Team Providers Care Loading Unit Operator Seating Name Role Phone None, Provider Primary Care Provider Tesha orozco Encounter Details Date Type Department Care Team (Latest Contact Info) Description 05/03/2025 Travel Social History Tobacco Use Types Packs/Day Years Used Date Smoking Tobacco: Every Day Cigarettes Smokeless Tobacco: Never Alcohol Use Standard Drinks/Week Comments Yes 0 (1 standard drink = 0.6 oz pur e alcohol) socially [facility] Utilities Answer Date Recorded In the past [...] place to sleep or slept in a penitentiary (including now)? Patient declined 11/09/2023 Comments No Sex and Gender Information Value Date Recorded Sex Assigned at Female 05/03/2025 10:53 AM CDT Legal Sex Female 8:01 PM CDT Gender Identity Not on file Sexual Orientation Not on file documented as of this encounter Functional Status * Are you [...] Status No Risk Indicated 05/03/2025 10:43 AM Partha Iniguez RN Active * [place] Suicide Severity Rating Scale (Screener/Recent Self-Report) Question Answer Date of Assessment Author Status 1. Wish to be (Past 1 Month) No 05/03/2025 10:43 AM Shyanne Iniguez RN Act augustina 2. Non-Specific Active Suicidal Thoughts (Past 1 Month) No 05/03/2025 10:43 AM Shyanne Iniguez RN Act augustina 6. Suicidal Behavior (Lifetime) No 05/03/2025 10:43 AM Shyanne Iniguez RN Act augustina documented as of this encounter Mental Status * Because of a physical, mental, or emotional condition, do you have serious difficulty concentrating, remembering, or making decisions? Answer Entry Date Author Status No 11/09/2023 12:07 AM Anaid Urbina RN Active documented in this encounter Plan of Treatment Not on file documented as of this encounter Visit Diagnoses Not on filedocumented in this encounter Care Teams Loading Unit Operator Seating Relationship Specialty Start Date End Date None, Provider, PCP - General UNKNOWN PHYSICIAN SPECIALTY 02/27/23 documented as of this encounter
--- OUTSIDE RECORDS SUMMARY | 2025-05-03 19:26 | XMS_ITS | Clinical Summary ---
Author Organization [facility] Address [address] [place] [address] Care Team Providers Care Access Assoc Name Role Phone Kendall Pretty MD Primary Care Provide r Source Comments [facility],non-owned Affiliates and Associated Physician Practices is amultiple site organization consisting of ambulatory clinics and hospital sitesin [place], [place], [place] and [place]. This disclosure is being madepursuant to the Care Everywhere program and may not contain all information available regarding this patient. Last updated 18.[facility] Allergies No known active allergies Medications * Be aware that medications may not be up to date on this document. Alwaysverify current medications with the patient. ALPRAZolam (XANAX) 0.5 MG tablet TK 1 T PO BID PRN 08/21/2020 Active citalopram (CELEXA) 20 MG tablet TK 1 T PO D 08/21/2020 Active paliperidone CR 24hr (INVEGA) 6 MG tablet 08/22/2020 Active Probiotic Product (PROBIOTIC ADVANCED PO) Active Family History Medical History Relation Name Comments Cancer - Colon Neg Hx Colon polyps Neg Hx Social History Tobacco Use Types Packs/Day Years Used Date Smoking Tobacco: Never Assessed Comments Unknown Sex and Gender Information Value Date Recorded Sex Assigned at Not on file Legal Sex Female 5:33 AM [employer] Gender Identity Not on file Sexual Orientation Not on file Last Filed Vital Signs Vital Sign Reading Time Taken Comments Blood Pressure - - Pulse - - Temperature - - Respiratory Rate - - Oxygen Saturation - - Inhaled Oxygen Concentration - - Weight 61.2 kg (135 lb) 08/30/2020 2:22 PM [employer] Height 171.5 cm (5' 7.5) 08/30/2020 2:22 PM [employer] Body Mass Index 20.83 08/30/2020 2:22 PM [employer] Plan of Treatment Health Maintenance Due Date Last Done Comments COLOGUARD (AGES 45-75) - COL ON CA SCREENING 1965 COLON MONITORING 1965 COLONOSCOPY - COLON CA SCREENING 1965 CT COLONOGRAPHY - COLON CA SCREENING 1965 Colorectal Cancer Screening 1965 FIT - COLON CA SCREENING 1965 FLEX SIG - COLON CA SCREENING 1965 LIPID TESTING 1965 MAMMOGRAM 1965 HIV SCREENING 1980 HEPATITIS C SCREENING 08/06/1983 DTAP/TDAP/TD VACCINES (1 - Tdap) 1984 HEPATITIS B VACCINE (1 of 3 - 19+ 3-dose series) 1984 PNEUMOCOCCAL VACCINE 50+ (1 of 1 - PCV) 2015 ZOSTER VACCINE (1 of 2) 2015 COVID-19 VACCINE (1 - 2023-2 5 season) 2024 DEPRESSION SCREENING 10/18/2024 INFLUENZA VACCINE (#1) 2025 HIB VACCINE Aged Out No longer eligi [...] patient's age to complete this topic Insurance [address] [place] [id number] [place] [address] Care Teams Access Assoc Relationship Specialty Start Date End Date Kendall Pretty MD PCP - General Family Medicine 08/30/20
--- OUTSIDE RECORDS SUMMARY | 2025-05-03 19:26 | XMS_ITS | Continuity of Care Document ---
Author [facility] Address [address] [place] [address] [address] [place] [address] Phone Care Team Providers Care Litigation Counsel Name Role Phone Krish OD, Rocio Unavailable Unavailable Procedures Procedure Date EYE EXAM, NEW PATIENT REFRACTION Advance Directives Directive Yes / No Effective Date File Name No Information Encounters Encounter Description Practice Location Reason(s) For Visit Diagnoses Date Provider Providers Copied on Encounter [facility], [address], [place], [place], [id number], tel:[phone] [phone] No Information [address] , [address], [place], [place], [id number] , [place]. tel:[phone] Family History Family Member Type Diagnosis Age At Onset No Information Payers Payer name Insurance type Covered democrat ID Authoriza tion(s) [facility] CI [id number] Social History Type Description Quantity Date Captured [...]
[2025-05-03] MEDS: NALOXONE HCL INJ 2 MG/2 ML AMP IV PUSH (19:27)
[2025-05-03] MEDS: ONDANSETRON INJ 4 MG/2 ML VIAL 8 MG IV PUSH (19:34)
[2025-05-03] MEDS: LACTATED RINGERS 1,000 ML 999 ML IV CONT (20:04)
[2025-05-03 20:34] LABS: Hematocrit 46.2 % (37.0-47.0); Hemoglobin 14.5 g/dL (12.0-15.0); Immature Granulocyte Percent A 0.4 % (0-0.5); Lymphocytes Absolute Auto 2.74 K/mm3 (0.9-3.2); Mean Corpuscular HGB Conc 31.4 g/dl (32-36); Mean Corpuscular Hemoglobin 26.6 pg (26-34); Mean Corpuscular Volume 84.6 fl (80-100); Nucleated Red Blood Cells Absolute Auto 0.000 K/mm3 (0.0-0.012); Nucleated Red Blood Cells Perc 0.0 % (0.0-0.2); Platelet Count Result 284 k/mm3 (150-375); Red Blood Count 5.46 M/mm3 (4.2-5.4); White Blood Count 13.6 K/mm3 (4.5-10.0)
[2025-05-03 20:45] LABS: INR 1.1; Prothrombin Time 13.9 Seconds (11.1-14.7)
[2025-05-03 20:47] LABS: Partial Thromboplastin Time 22.4 Seconds (22.3-36.8)
[2025-05-03 20:48] LABS: Alanine Aminotransferase 29 U/L (6-35); Albumin Level 4.9 g/dL (3.5-5.1); Alkaline Phosphatase 96 U/L (38-126); Anion Gap 15 mmol/L (4-12); Aspartate Amino Transferase 43 U/L (14-36); Bilirubin,Total 0.6 mg/dL (0.2-1.3); Blood Urea Nitrogen 7 mg/dL (7-17); Calcium 11.2 mg/dL (8.4-10.2); Carbon Dioxide 26 mmol/L (22-30); Chloride 101 mmol/L (98-107); Estimated Glomerular Filt Rate > 60; Glucose 163 mg/dL (65-110); Potassium 3.8 mmol/L (3.4-5.0); Sodium 142 mmol/L (137-145); Total Protein 9.2 g/dL (6.3-8.2)
[2025-05-03 20:58] LABS: Add Urine Microscopic? YES; Appearance Urine Clear (Clear); Glucose Urine UA Negative (Negative); Leukocyte Esterase Ur Negative LEU/UL (Negative); Need Manual Microscopic Reviewed; Nitrate Urine Negative (Negative); Non Pathogenic Casts 0-2; Specific Grav Ur 1.024 (1.001-1.035)
[2025-05-03 21:03] LABS: Troponin I < 0.012 ng/mL (0.000-0.034)
[2025-05-03 21:15] VITALS: PULSE 73
[2025-05-03 21:16] VITALS: BP 186/97; PULSE 78; RESP 22; O2SAT 96; O2SAT 97
[2025-05-03 23:02] VITALS: BP 169/97; PULSE 101; RESP 20; O2SAT 97
--- NOTE | 2025-05-04 02:55 | PC.NURSE ---
Pt ambulated to restroom with assistance from this typewriters functional tester and [employer] [place]. Pt contacted daughter whom will be providing pt ride home. Pt to call out when ride arrives.
[2025-05-04 04:15] VITALS: BP 143/93; PULSE 91; RESP 16; O2SAT 97
[2025-05-04 06:08] VITALS: BP 147/91; PULSE 98; RESP 18; O2SAT 100
[2025-05-04 06:10] VITALS: PULSE 85
[2025-05-04 06:54] LABS: Cannabinoid Screen Urine Negative (Negative)
== END 2025-05-04 06:38 | disposition home or self-care (01) ==
PROVIDERS: Emergency Provider Student in an Organized Health Care Education/Training Program
DX: T40.601A Poisoning by unspecified narcotics, accidental (unintentional), initial encounter (principal); F11.10 Opioid abuse, uncomplicated; G93.40 Encephalopathy, unspecified; R94.31 Abnormal electrocardiogram [ECG] [EKG]; I42.9 Cardiomyopathy, unspecified
CPT/HCPCS: 36415; 70450; 71045; 80053; 80307; 81001; 82948; 84484; 85025; 85610; 85730; 93005; 96361; 96374; 96375; 99284; J2312; J2405; J7120